=== PATIENT | female | born 1965 | race Caucasian/White ===

== ENCOUNTER 2017-11-16 12:44 | Day surgery (SDC) | payer OTHER ==
[~2017-11-16 12:44] MED LIST: HYDROCODONE/APAP 5/325 TAB PO SCH
[2017-11-16] MEDS ORDERED: fentaNYL 100 MCG/2 ML INJ IVP ONE (13:07)
[2017-11-16] MEDS ORDERED: ONDANSETRON 4 MG/2 ML VIAL IVP ONE (13:07)
--- NOTE | 2017-11-16 13:07 | EDPHY ---
H & P Time Seen by Provider: 11/16/17 12:55 HPI/ROS: CHIEF COMPLAINT: Abdominal pain HISTORY OF PRESENT ILLNESS: This 52-year-old woman arrives with abdominal pain since 3:00 a.m. Today. She says she has had multiple episodes previously of abdominal pain kind of like this but never any definite diagnosis. A couple of episodes as a teenager and then every few years since. She says she started off with some diffuse abdominal pain at 3:00 a.m. Which now radiates into the right lower quadrant. Worse with movement and better standing up or lying down in the position. No vomiting or diarrhea or recent injury or urinary symptoms or fever or chills. REVIEW OF SYSTEMS: Eye: no change in vision ENT: no sore throat Cardiac: no chest pain or syncope Pulmonary: no cough or SOB Abdomen: HPI Musculoskeletal: no back pain Skin: no rash Neuro: no headache Constitutional: no fever : no urinary symptoms A comprehensive 10 point review of systems is otherwise negative aside from elements mentioned in the history of present illness. PAST MEDICAL HISTORY: Includes hypothyroid, GERD, hysterectomy. Social history: Visiting from [place] to support her sister who just had ACL surgery General Appearance: Alert and conversant, cooperative. Eyes: No scleral icterus. ENT, Mouth: Normal mucous membranes. Respiratory: Normal respiratory effort, breath sounds equal, lungs are clear to auscultation. Cardiovascular: Regular rate and rhythm. Gastrointestinal: Right lower quadrant abdominal tenderness with positive Rovsing's. Neurological: Alert, face symmetric, normal motor and sensory in extremities. Skin: Warm and dry, no rashes. Musculoskeletal: No peripheral edema. Psychiatric: Not agitated. Emergency Department course/MDM: Patient presents with abdominal pain and physical exam suggestive of possible appendicitis. Fentanyl 100 mcg IV and Zofran 4 mg IV, CT scanning discussed and consented. Hysterectomy, so no testing. 1354: CT personally interpreted suspicious for appendicitis with appendicolith. Ceftriaxone 1 g IV, metronidazole 500 mg IV, surgical consultation. 1405: Appendicitis on CT per Dr. Graves, discussed with the patient and with Dr. Tomlin. Smoking Status: Never smoked Constitutional: Initial Vital Signs Temperature (C) 37.1 C 11/16/17 12:47 Heart Rate 90 11/16/17 12:47 Respiratory Rate 18 11/16/17 12:47 Blood Pressure 136/97 H 11/16/17 12:47 O2 Sat (%) 97 11/16/17 12:47 O2 Delivery Mode Room Air O2 (L/minute) 2 Allergies/Adverse Reactions: No Known Allergies Allergy (Unverified 11/16/17 12:49) Home Medications: Medication Instructions Recorded Levothyroxine [Synthroid 88 mcg 88 mcg PO DAILY06 11/16/17 (*)] Omeprazole 20 mg PO DAILY 11/16/17 Rizatriptan Benzoate [Maxalt] 10 mg PO DAILY PRN 11/16/17 Medical Decision Making - Diagnostics Imaging Results: Imaging Impressions Abdomen CT 11/16/17 13:21 Impression: 1. Acute likely ruptured appendicitis without abscess or free air. 2. Cholelithiasis without evidence of cholecystitis. 3. Additional findings as above. Findings discussed with Dr. Tommy Perez on 11/16/2017 at 1401 hours. Imaging: Discussed imaging studies w/ rotary filter operator Radiologist Differential Diagnosis: Differential diagnosis considered for abdominal pain including but not limited to appendicitis, ovarian torsion, ovarian cyst, gastritis and urinary tract infection. Consult/Admit Bed Type: Tomlin will see pt in ED - Data Points Laboratory Results: Laboratory Results 11/16/17 13:10 11/16/17 13:10 11/16/17 11/16/17 11/16/17 13:18 13:10 13:10 WBC 12.26 10^3/uL H 10^3/uL (3.80-9.50) RBC 4.43 10^6/uL 10^6/uL (4.18-5.33) Hgb 14.3 g/dL g/dL (12.6-16.3) POC Hgb 14.6 gm/dL gm/dL (12.6-16.3) Hct 41.1 % % (38.0-47.0) POC Hct 43 % % (38-47) MCV 92.8 fL fL (81.5-99.8) MCH 32.3 pg pg (27.9-34.1) MCHC 34.8 g/dL g/dL (32.4-36.7) RDW 11.9 % % (11.5-15.2) Plt Count 272 10^3/uL 10^3/uL (150-400) MPV 9.1 fL fL (8.7-11.7) Neut % (Auto) 87.0 % H % (39.3-74.2) Lymph % (Auto) 9.1 % L % (15.0-45.0) Mellette % (Auto) 2.9 % L % (4.5-13.0) Eos % (Auto) 0.1 % L % (0.6-7.6) Baso % (Auto) 0.4 % % (0.3-1.7) Nucleat RBC Rel Count 0.0 % % (0.0-0.2) Absolute Neuts (auto) 10.68 10^3/uL H 10^3/uL (1.70-6.50) Absolute Lymphs (auto) 1.11 10^3/uL 10^3/uL (1.00-3.00) Absolute Monos (auto) 0.35 10^3/uL 10^3/uL (0.30-0.80) Absolute Eos (auto) 0.01 10^3/uL L 10^3/uL (0.03-0.40) Absolute Basos (auto) 0.05 10^3/uL 10^3/uL (0.02-0.10) Absolute Nucleated RBC 0.00 10^3/uL 10^3/uL (0-0.01) Immature Gran % 0.5 % % (0.0-1.1) Immature Gran # 0.06 10^3/uL 10^3/uL (0.00-0.10) POC Sodium 137 mEq/L mEq/L (135-145) Sodium 139 mEq/L mEq/L (135-145) POC Potassium 3.9 mEq/L mEq/L (3.3-5.0) Potassium 4.1 mEq/L mEq/L (3.5-5.2) POC Chloride 102 mEq/L mEq/L (97-110) Chloride 104 mEq/L mEq/L (97-110) Carbon Dioxide 24 mEq/l mEq/l (22-31) Anion Gap 11 mEq/L mEq/L (8-16) POC BUN 16 mg/dL mg/dL (7-23) BUN 16 mg/dL mg/dL (7-23) Creatinine 0.7 mg/dL mg/dL (0.6-1.0) POC Creatinine 0.7 mg/dL mg/dL (0.6-1.0) Estimated GFR > 60 Glucose 111 mg/dL H mg/dL (70-100) POC Glucose 122 mg/dL H mg/dL (70-100) Calcium 9.7 mg/dL mg/dL (8.5-10.4) Medications Given: Metronidazole/Sodium Chloride (Flagyl 500 Mg (Premix)) 100 mls @ 100 mls/hr IV EDNOW ONE PRN Reason: Protocol Stop: 11/16/17 15:04 Last Admin: 11/16/17 14:40 Dose: 100 mls Discontinued Medications Fentanyl (Sublimaze) 100 mcg IVP EDNOW ONE Stop: 11/16/17 13:08 Last Admin: 11/16/17 13:21 Dose: 100 mcg Sodium Chloride (Ns) 1,000 mls @ 0 mls/hr IV EDNOW ONE; Wide Open PRN Reason: Protocol Stop: 11/16/17 13:08 Last Admin: 11/16/17 14:26 Dose: 1,000 mls Sodium Chloride (Ns) 1,000 mls @ 0 mls/hr IV EDNOW ONE; Wide Open PRN Reason: Protocol Stop: 11/16/17 13:53 Last Admin: 11/16/17 14:28 Dose: 1,000 mls Ceftriaxone Sodium/Dextrose (Rocephin 1 Gm (Premix)) 50 mls @ 100 mls/hr IV EDNOW ONE PRN Reason: Protocol Stop: 11/16/17 14:34 Last Admin: 11/16/17 14:26 Dose: 50 mls Ondansetron HCl (Zofran) 4 mg IVP EDNOW ONE Stop: 11/16/17 13:08 Last Admin: 11/16/17 13:21 Dose: 4 mg Point of Care Test Results: 11/16/17 13:18 POC Sodium 137 POC Potassium 3.9 POC Chloride 102 POC BUN 16 POC Creatinine 0.7 POC Glucose 122 H Departure - Departure Disposition: [facility] Acute Clinical Impression: Acute appendicitis Qualifiers: Acute appendicitis type: with localized peritonitis Qualified Code(s): K35.3 - Acute appendicitis with localized peritonitis Condition: Good
[2017-11-16] MEDS: NS 1,000 ML IV ONE ×2 (13:21→14:26)
[2017-11-16 13:26] LABS: PLATELET COUNT 272 10^3/uL (150-400)
[2017-11-16] MEDS ORDERED: IOPAMIDOL (ISOVUE-300) 100 ML BTL ONE (13:26)
[2017-11-16] MEDS ORDERED: NS 1,000 ML IV ONE (13:52)
[2017-11-16] MEDS ORDERED: BUPIVACAINE/EPI 0.5% 30 ML SDV ONE (14:38)
--- NOTE | 2017-11-16 15:15 | PDANEPAE ---
ANE History of Present Illness here for lap appwesley HERMANN Past Medical History - Cardiovascular History Hx Hypertension: No Hx Arrhythmias: No Hx Chest Pain: No Hx Coronary Artery / Peripheral Vascular Disease: No Hx CHF / Valvular Disease: No Hx Palpitations: No - Pulmonary History Hx COPD: No Hx Asthma/Reactive Airway Disease: No Hx Recent Upper Respiratory Infection: No Hx Oxygen in Use at Home: No Hx Sleep Apnea: No - Endocrine History Hx Diabetes: No Hypothyroid: Yes Hyperthyroid: No Obesity: mild - Renal History Hx Renal Disorders: No - Liver History Hx Hepatic Disorders: No - Neurological & Psychiatric Hx Hx Neurological and Psychiatric Disorders: No ANE Review of Systems Review of systems is: negative Review of Systems: - Exercise capacity Exercise capacity: >=4 METS ANE Patient History - Allergies Allergies/Adverse Reactions: No Known Allergies Allergy (Unverified 11/16/17 12:49) - Home Medications Home medications: home medication list seen and reviewed Home Medications: Levothyroxine [Synthroid 88 mcg (*)] 88 mcg PO DAILY06 11/16/17 [Last Taken ] Omeprazole 20 mg PO DAILY 11/16/17 [Last Taken 11/16/17] Rizatriptan Benzoate [Maxalt] 10 mg PO DAILY PRN 11/16/17 [Last Taken Unknown] - Anes Hx Anes Hx: no prior problems - Smoking Hx Smoking Status: Never smoked ANE Labs/Vital Signs - Labs Result Diagrams: 11/16/17 13:10 11/16/17 13:10 - Vital Signs Vital Signs: reviewed preoperatively; see RN documention for details Blood Pressure: 118/78 Heart Rate: 87 Respiratory Rate: 16 O2 Sat (%): 98 Height: 162.56 cm Weight: 78.018 kg ANE Physical Exam - Airway Neck exam: FROM Mallampati Score: Class 1 - Pulmonary Pulmonary: no respiratory distress - Cardiovascular Cardiovascular: regular rate and rhythym - ASA Status ASA Status: II ANE Anesthesia Plan Anesthesia Plan: general endotracheal anesthesia
[2017-11-16] MEDS ORDERED: fentaNYL 100 MCG/2 ML INJ ONE ×2 (15:17→16:45)
[2017-11-16] MEDS ORDERED: PROPOFOL/EMULSION 500 MG/50 ML BOTTLE IV ONE (15:18)
[2017-11-16] MEDS ORDERED: HYDROmorphone HCL/NS 0.5 MG/ML SYR IVP PRN (15:34)
[2017-11-16] MEDS ORDERED: DEXAMETHASONE 4 MG/ML VIAL IVP PRN (15:34)
[2017-11-16] MEDS ORDERED: ONDANSETRON 4 MG/2 ML VIAL IVP PRN (15:34)
[2017-11-16] MEDS ORDERED: oxyCODONE IR 5 MG TAB PO PRN (15:34)
[2017-11-16] MEDS ORDERED: ACETAMINOPHEN 500 MG TAB PO PRN (15:34)
[2017-11-16] MEDS ORDERED: LR 500 ML IV PRN (15:34)
[2017-11-16] MEDS ORDERED: NALOXONE HCL 0.4 MG/ML INJ IVP PRN (15:34)
[2017-11-16] MEDS ORDERED: HYDROCODONE/APAP 5/325 TAB PO PRN (15:34)
[2017-11-16] MEDS ORDERED: fentaNYL 100 MCG/2 ML INJ IVP PRN (15:34)
[2017-11-16] MEDS ORDERED: ALBUTEROL 3 ML DEYVIAL IH PRN (15:34)
--- NOTE | 2017-11-16 15:35 | GCON ---
[f rep st] CONSULTATION DATE OF CONSULTATION: 11/16/2017 REASON FOR EVALUATION: Appendicitis. REQUESTING PHYSICIAN: Tommy Perez MD HISTORY OF PRESENT ILLNESS: 52-year-old female visiting her sister from [place] , who is recovering from recent ACL surgery, presents to the emergency room with a 1-day history of severe right lower quadrant abdominal pain starting at approximately 3:00 this morning. Pain awoke her from sleep. She reports a longstanding history of intermittent abdominal pains, not quite the same as her current complaints. Workup for those conditions has always been unremarkable. Her pain continued to worsen throughout the day with associated nausea. No emesis. No diarrhea. No fevers or chills. ED workup, including CT imaging, disclosed evidence of leukocytosis of 13 with a dilated appendix. Surgery has been requested for further recommendations. PAST MEDICAL HISTORY: Hypothyroidism and GERD. PAST SURGICAL HISTORY: Laparoscopic hysterectomy, right wrist ganglion cystectomy, and tonsillectomy. MEDICATIONS: Levothyroxine, Maxalt, and omeprazole. ALLERGIES: No known drug allergies. SOCIAL HISTORY: No alcohol. No tobacco. FAMILY HISTORY: Noncontributory. REVIEW OF SYSTEMS: Notable for above GI complaints only. Otherwise a negative 10 point review. PHYSICAL EXAMINATION: VITAL SIGNS: Temperature 36.9, blood pressure 120/80, pulse 87, respirations 16. CONSTITUTIONAL: The patient is alert, appropriate, comfortable, and uncomfortable. HEENT: Anicteric. NECK: No cervical lymphadenopathy. HEART: Regular without murmurs. LUNGS: Clear bilaterally. ABDOMEN: Soft with mild diffuse tenderness, greatest in the right upper and lower quadrants. Mild guarding is present. EXTREMITIES: Without edema. NEUROLOGIC: Alert and appropriate. SKIN: Without rashes. LABORATORY DATA: White count 13, hemoglobin 14, platelets 270. Electrolytes within reference range. CT images were directly reviewed on PACS. A notably dilated appendix with appendicolith is present with mild periappendiceal inflammatory change. Query possible rupture per radiologist review. IMPRESSION: Acute appendicitis. PLAN: Laparoscopic appendectomy. Risks and benefits explained to the patient including bleeding, infection, open conversion, as well as alternative diagnoses. All questions were answered. She desires to proceed. /[id number]/MODL MTDD
[2017-11-16] MEDS ORDERED: SUGAMMADEX SODIUM 200 MG/2 ML VIAL IVP ONE (15:46)
--- NOTE | 2017-11-16 16:15 | POSTOPPROG ---
Post Op Note Date of Operation: 11/16/17 Surgeon: Renato Tomlin Anesthesiologist: Gunner Lieberman Anesthesia: GET(General Endotracheal) Pre-op Diagnosis: Acute Appendicitis Post-op Diagnosis: Same Procedure: Lap Appy Findings: Suppurative appendix Inf/Abcess present in the surg proc area at time of surgery?: Yes Depth: Organ Space EBL: Minimal Specimen(s): appendix
[2017-11-16] MEDS ORDERED: HYDROCODONE/APAP 5/325 TAB ONE (17:29)
[2017-11-16 18:07] VITALS: BP 118/70
--- NOTE | 2017-11-16 20:22 | GOP ---
[f rep st] OPERATIVE REPORT DATE OF OPERATION: 11/16/2017 SURGEON: Renato Tomlin MD ANESTHESIA: General. ANESTHESIOLOGIST: Gunner Lieberman MD. PREOPERATIVE DIAGNOSIS: Acute appendicitis. POSTOPERATIVE DIAGNOSIS: Acute appendicitis. PROCEDURE PERFORMED: Laparoscopic appendectomy. FINDINGS: Suppurative appendicitis. INDICATIONS: 52-year-old female with acute appendicitis. She is undergoing a laparoscopic appendectomy at this time. Risks and benefits were explained of bleeding, infection, open conversion, as well as alternative diagnoses. All questions were answered. She desires to proceed. DESCRIPTION OF PROCEDURE: After general anesthesia was induced, the abdomen was preinjected with 0.5% Marcaine with epinephrine. A previous transverse infraumbilical incision was reopened. The midline fascia was opened vertically. A 10 mm trocar was placed under direct visualization. Two additional 5 mm left lower quadrant ports were inserted. The appendix was acutely thickened with suppuration without evidence of perforation. The mesoappendix was divided with the Harmonic Scalpel. The base was transected flush with the cecum with an endoscopic ANGELA stapler. The specimen was brought through the umbilical port intact and using an Endo Catch pouch. Satisfactory hemostasis was assured. Trocars were removed under direct visualization. The infraumbilical midline fascia was closed with running Vicryl suture. The wounds were closed with Monocryl and Dermabond. The patient was taken to recovery uneventfully. /[id number]/MODL MTDD
== END 2017-11-16 18:45 | disposition home or self-care (01) ==
LOC: UNDOADMOB 14:06 → FSGY 14:06 → UNDODISOB 18:45 → FSGY 18:45
PROVIDERS: ATTEND Surgery
PROC: 0DTJ4ZZ Resection of Appendix, Percutaneous Endoscopic Approach (ICD-10-PCS; principal; 2017-11-16 15:00)
DX: K35.80 Unspecified acute appendicitis (principal); K38.2 Diverticulum of appendix; K80.20 Calculus of gallbladder without cholecystitis without obstruction; E03.9 Hypothyroidism, unspecified; K21.9 Gastro-esophageal reflux disease without esophagitis; Z90.710 Acquired absence of both cervix and uterus
CPT/HCPCS: 82947-QW; 96365; J0696; J2405; J2704; J3010; Q9967